=== PATIENT | male | born 1990 | race African-American/Black ===

== ENCOUNTER 2018-11-29 08:54 | Emergency (ER) | payer SELFPAY ==
[~2018-11-29] VITALS: Ht 182.9 cm; Wt 88.5 kg
--- NOTE | 2018-11-29 08:56 | NUR ---
PT AMBULATED TO ER BED 12
[2018-11-29 09:02] VITALS: BP 126/90
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
[2018-11-29] MEDS ORDERED: ACETAMINOPHEN 325 MG TAB PO ONE (09:10)
--- NOTE | 2018-11-29 09:17 | NUR ---
X-RAY AT BEDSIDE
[2018-11-29 09:45] VITALS: BP 128/68
--- NOTE | 2018-11-29 09:45 | NUR ---
Patient discharged with v/s stable. Written and verbal after care instructions given and explained. Patient alert, oriented and verbalized understanding of instructions. Ambulatory with steady gait. All questions addressed prior to discharge. ID band removed. Patient advised to follow up with PMD. Rx of omeprazole given. Patient educated on indication of medication including possible reaction and side effects. Opportunity to ask questions provided and answered.
== END 2018-11-29 09:45 | disposition home or self-care (01) ==
LOC: MED 08:54
DX: S93.402A Sprain of unspecified ligament of left ankle, initial encounter (principal); R03.0 Elevated blood-pressure reading, without diagnosis of hypertension; X58.XXXA Exposure to other specified factors, initial encounter; Y93.89 Activity, other specified; Y92.89 Other specified places as the place of occurrence of the external cause; Y99.8 Other external cause status
CPT/HCPCS: 73610; 73630; 99283; Q0092; 29515

== ENCOUNTER 2018-12-13 12:07 | Emergency (ER) | payer SELFPAY ==
[~2018-12-13] VITALS: Ht 182.9 cm; Wt 88.5 kg
[2018-12-13 12:18] VITALS: BP 135/84
--- NOTE | 2018-12-13 12:22 | NUR ---
PT AMBULATED TO ER BED 02
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
[2018-12-13 13:03] VITALS: BP 120/84
--- NOTE | 2018-12-13 13:03 | NUR ---
Patient discharged with v/s stable. Written and verbal after care instructions given and explained. Patient alert, oriented and verbalized understanding of instructions. Ambulatory with steady gait. All questions addressed prior to discharge. ID band removed. Patient advised to follow up with PMD. Rx of Naprosyn and Manuela given. Patient educated on indication of medication including possible reaction and side effects. Opportunity to ask questions provided and answered.
== END 2018-12-13 13:03 | disposition home or self-care (01) ==
LOC: MED 12:07
DX: M79.652 Pain in left thigh (principal); R51 Headache; M54.2 Cervicalgia
CPT/HCPCS: 99283